=== PATIENT | female | born 1990 | race Caucasian/White ===

== ENCOUNTER 2016-11-22 00:42 | Emergency (ER) | payer OTHER ==
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
[2016-11-22] MEDS ORDERED: ACETAMINOPHEN 325 MG TABLET PO ONE (01:25)
[2016-11-22] MEDS ORDERED: ACETAMINOPHEN 325 MG TABLET ONE (01:30)
[2016-11-22 02:56] VITALS: BP 126/72
== END 2016-11-22 01:49 | disposition home or self-care (01) ==
LOC: ER 00:42
DX: M84.441A Pathological fracture, right hand, initial encounter for fracture (principal); V49.9XXA Car occupant (driver) (passenger) injured in unspecified traffic accident, initial encounter; Y92.411 Interstate highway as the place of occurrence of the external cause; Y93.89 Activity, other specified

== ENCOUNTER 2016-11-24 06:49 | Day surgery (SDC) | payer OTHER ==
[~2016-11-24 06:49] MED LIST: RINGERS SOLUTION,LACTATED 1,000 ML IV PRN; ceFAZolin SODIUM 1 GM VIAL IV PRN
[2016-11-24] MEDS ORDERED: RINGERS SOLUTION,LACTATED 1,000 ML IV ONE ×2 (07:32→08:50)
[2016-11-24] MEDS ORDERED: HYDROmorphone HCL 2 MG/ML VIAL IV PRN (09:07)
[2016-11-24] MEDS ORDERED: NALOXONE HCL 0.4 MG/ML VIAL IV PRN (09:07)
[2016-11-24] MEDS ORDERED: PROMETHAZINE HCL 12.5 MG in DEXTROSE 5 % IN WATER 50 ML IV PRN ×2 (09:07)
[2016-11-24] MEDS ORDERED: ONDANSETRON HCL/PF 2 MG/ML VIAL IV PRN (09:07)
[2016-11-24] MEDS ORDERED: diphenhydrAMINE HCL 50 MG/ML VIAL IV PRN (09:07)
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
[2016-11-24 11:09] VITALS: BP 124/77
== END 2016-11-24 06:50 | disposition home or self-care (01) ==
LOC: AMB 06:49
PROVIDERS: ATTEND Orthopaedic Surgery
PROC: 0PSH04Z Reposition Right Radius with Internal Fixation Device, Open Approach (ICD-10-PCS; principal; 2016-11-24 07:40)
DX: S52.511A Displaced fracture of right radial styloid process, initial encounter for closed fracture (principal); J45.909 Unspecified asthma, uncomplicated; D64.9 Anemia, unspecified; F41.9 Anxiety disorder, unspecified; F32.9 Major depressive disorder, single episode, unspecified; F17.210 Nicotine dependence, cigarettes, uncomplicated; Z68.21 Body mass index [BMI] 21.0-21.9, adult; V47.0XXA Car driver injured in collision with fixed or stationary object in nontraffic accident, initial encounter
CPT/HCPCS: 25607; C1713